=== PATIENT | male | born 1940 | race Caucasian/White ===

== ENCOUNTER 2022-09-26 01:09 | Emergency (ER) | payer MEDICARE, OTHER ==
[2022-09-26] VITALS (13 sets, daily range): BP systolic 123–150; BP diastolic 72–108
[~2022-09-26] VITALS: Ht 162.6 cm; Wt 80.0 kg
[2022-09-26] MEDS ORDERED: PROTONIX40 M2 PO (01:40)
[2022-09-26] MEDS ORDERED: COZAAR50 MG PO (01:41)
[2022-09-26] MEDS ORDERED: SIMVASTATIN20 M1 PO (01:41)
[2022-09-26] MEDS ORDERED: ELAVIL25 M1 PO (01:42)
[2022-09-26] MEDS ORDERED: COREG3.125 MG PO (01:42)
[2022-09-26] MEDS ORDERED: PLAVIX75 MG PO (01:43)
[2022-09-26] MEDS ORDERED: ASPIRINCHW 81MG PO (01:44)
[2022-09-26] MEDS ORDERED: B121000 MC1 PO (01:45)
[2022-09-26] MEDS ORDERED: D31000 UNIT PO (01:45)
[2022-09-26] MEDS ORDERED: OS-CAL 500500 M1 PO (01:46)
[2022-09-26] MEDS ORDERED: VITAMIN C1000 MG PO (01:46)
[2022-09-26 01:54] LABS: BASO% 0.3 % (0-3); EOS% 4.2 % (0-8); HEMATOCRIT 42.1 % (39.0-50.0); HEMOGLOBIN 14.5 g/dl (14.0-18.0); IMMATURE GRANULOCYTES 0.3 % (0.0-5.0); LYMPH% 19.2 % (15-41); MEAN CELL VOLUME 93.8 fL CALC (80.0-100.0); MEAN CORPUSCULAR HGB 32.3 pG CALC (26.0-32.0); MEAN CORPUSCULAR HGB CONC 34.4 g/dL CAL (32.0-36.0); MONO% 9.7 % (2-13); NEUT# 7.32 thou/uL (1.82-7.42); NEUT% 66.3 % (42-76); RED BLOOD COUNT 4.49 mill/uL (4.70-6.10); RED CELL DISTRI WIDTH 13.1 % (11.5-15.5)
[2022-09-26 02:01] LABS: ALBUMIN 4.1 g/dL (3.2-5.0); ALKALINE PHOSPHATASE 80 u/l (38-126); ANION GAP 11 (6-22 (CALC)); BILIRUBIN, TOTAL 0.7 mg/dL (0.2-1.3); BUN 16 mg/dL (8-23); BUN/CREATININE RATIO 16 (12-20 (CALC)); CARBON DIOXIDE 26 mmol/l (22-30); CHLORIDE 99 mmol/l (95-108); GFR FOR AFR.AMER. > 60 ML/MIN (>=60 (CALC)); GFR OTHER RACES > 60 ML/MIN (>=60 (CALC)); POTASSIUM 4.5 mmol/l (3.5-5.1); SGOT/AST 27 u/l (19-48); SODIUM 132 mmol/l (137-146); TOTAL PROTEIN 7.2 g/dL (6.3-8.2)
[2022-09-26] MEDS ORDERED: ZITHROMAX250 MG PO (03:53)
== END 2022-09-26 04:49 | disposition home or self-care (01) ==
LOC: ED 01:09
PROVIDERS: Emergency Medicine
PROC: 0HQFXZZ Repair Right Hand Skin, External Approach (ICD-10-PCS; principal; 2022-09-26)
DX: J20.9 Acute bronchitis, unspecified (principal); S61.411A Laceration without foreign body of right hand, initial encounter; I69.954 Hemiplegia and hemiparesis following unspecified cerebrovascular disease affecting left non-dominant side; I10 Essential (primary) hypertension; J44.9 Chronic obstructive pulmonary disease, unspecified; W01.0XXA Fall on same level from slipping, tripping and stumbling without subsequent striking against object, initial encounter; Z20.822 Contact with and (suspected) exposure to COVID-19

== ENCOUNTER 2022-12-27 09:50 | Observation (INO) | payer MEDICARE, OTHER ==
[2022-12-27] VITALS (21 sets, daily range): BP systolic 111–142; BP diastolic 57–77
[~2022-12-27] VITALS: Ht 162.6 cm; Wt 80.0 kg
[~2022-12-27 09:50] MED LIST: ASPIRINCHW 81MG PO; B121000 MC1 PO; COREG3.125 MG PO; COZAAR50 MG PO; D31000 UNIT PO; ELAVIL25 M1 PO; OS-CAL 500500 M1 PO; PLAVIX75 MG PO; PROTONIX40 M2 PO; SIMVASTATIN20 M1 PO; VITAMIN C1000 MG PO; ZITHROMAX250 MG PO
--- NOTE | 2022-12-27 09:50 | NUR ---
PT WHEELED TO ROOM15. PT IS AN EXTREMELY HARD TRANSFER WITH 2 ASSIST. PT DOES NOT FOLLOW [facility] WELL. NOR DOES HE WALK WELL. PT IS ALERT BUT NOT OX3
[2022-12-27 10:48] LABS: BASO% 0.2 % (0-3); EOS% 1.4 % (0-8); HEMATOCRIT 40.4 % (39.0-50.0); HEMOGLOBIN 13.5 g/dl (14.0-18.0); IMMATURE GRANULOCYTES 0.3 % (0.0-5.0); LYMPH% 9.6 % (15-41); MEAN CELL VOLUME 97.3 fL CALC (80.0-100.0); MEAN CORPUSCULAR HGB 32.5 pG CALC (26.0-32.0); MEAN CORPUSCULAR HGB CONC 33.4 g/dL CAL (32.0-36.0); MONO% 11.5 % (2-13); NEUT# 9.07 thou/uL (1.82-7.42); RED BLOOD COUNT 4.15 mill/uL (4.70-6.10); RED CELL DISTRI WIDTH 13.8 % (11.5-15.5)
[2022-12-27 10:57] LABS: ALBUMIN 3.6 g/dL (3.2-5.0); ALKALINE PHOSPHATASE 63 u/l (38-126); ANION GAP 13 (6-22 (CALC)); BILIRUBIN, TOTAL 1.4 mg/dL (0.2-1.3); BUN 28 mg/dL (8-23); BUN/CREATININE RATIO 26 (12-20 (CALC)); CARBON DIOXIDE 23 mmol/l (22-30); CHLORIDE 106 mmol/l (95-108); CREATININE 1.1 mg/dL (0.7-1.3); GFR FOR AFR.AMER. > 60 ML/MIN (>=60 (CALC)); GFR OTHER RACES > 60 ML/MIN (>=60 (CALC)); POTASSIUM 3.7 mmol/l (3.5-5.1); SGOT/AST 30 u/l (19-48); SODIUM 138 mmol/l (137-146); TOTAL PROTEIN 6.7 g/dL (6.3-8.2)
--- NOTE | 2022-12-27 11:17 | NUR ---
RETURNED FROM XRAY
--- NOTE | 2022-12-27 12:31 | NUR ---
PT HAS SPOUSE AT BEDSIDE, ALL NEEDS HAVE BEEN ADDRESSED.
[2022-12-27 12:52] LABS: URINE BILIRUBIN - DIPSTICK Negative (NEGATIVE); URINE BLOOD DIPSTICK Negative (NEGATIVE); URINE GLUCOSE - DIPSTICK Negative (NEGATIVE); URINE KETONE 15 mg/dL (NEGATIVE); URINE LEUK ESTERASE Negative (NEGATIVE); URINE NITRITE - DIPSTICK Negative (Negative); URINE PROTEIN - DIPSTICK >=300 mg/dL (NEG-TRACE); URINE SPECIFIC GRAVITY 1.025
[2022-12-27 12:54] LABS: URINE COLOR Dark yellow; URINE MUCUS MODERATE hpf (NONE-FEW)
[2022-12-27 13:44] LABS: INTERNATIONAL NORMALIZED RATIO 1.1 RATIO (0.7-1.3); PROTHROMBIN TIME 10.6 SECONDS (9.0-12.5)
[2022-12-27 13:49] LABS: CHOLESTEROL HDL RATIO 2.8 (<4.4 (CALC))
--- NOTE | 2022-12-27 13:50 | NUR ---
PT HAS BEEN ASSISTED TO SITTING UP IN BED, AND HAS BEEN PROVIDED A MEAL.
[2022-12-27 14:20] LABS: TSH, 3RD GENERATION 1.73 uIU/mL (0.47 - 4.68)
--- NOTE | 2022-12-27 15:20 | NUR ---
REPORT GIVEN TO ÁNGEL URIBE. PT HAS ALL BELONGINGS ON PERSON.
--- NOTE | 2022-12-27 15:49 | NUR ---
RECEIVED PT FROM ED ACCOMPANIED BY ÁNGEL BAKER. PT IS AOx0, PLEASANTLY CONFUSED. IV CATHETER IN RAC PATENT. PT IS ON TELEMETRY. PUREWICK PLACED ON PT. ALL SAFETY MEASURES IN PLACE. VSS
--- NOTE | 2022-12-27 20:00 | NUR ---
RECEIVED REPORT FROM NURSE JOJO, PATIENT RESTING IN BED, PATIENT CONFUSED, DOES NOT KNOW HIS NAME, SALINE LOCK NOTED ON RAC G 20 PATENT FLUSHES WELL, HOOKED ON TELEMETRY, HOOKE ON TELEMETRY, PUREWICK IN PLACE, CALL LIGHT IN REACH, BED ALAREM IN PLACE.
--- NOTE | 2022-12-27 22:35 | NUR ---
PATIENT HAS NOT VOIDED, BLADDER SCANNED [id number].WILL CONTINUE TO MONITOR,
[2022-12-28 00:11] VITALS: BP 123/67
--- NOTE | 2022-12-28 04:32 | NUR ---
PATIENT RESTING IN BED, EYES CLOSED,NO DISCOIMFTS AT THIS TIME, BREATHING EVEN UNALBORED.
[2022-12-28 04:58] VITALS: BP 112/63
--- NOTE | 2022-12-28 05:40 | NUR ---
PATIENT VOIDED 150CC, DARK YELLOW URINE, BLADDER SCANNED POST VOID [id number].
--- NOTE | 2022-12-28 06:34 | NUR ---
patient respiration even unlabored resp 15, incorrect input 150.
--- NOTE | 2022-12-28 07:00 | NUR ---
RECEIVED BEDSIDE REPORT FROM ÁNGEL YIN. PT RESTING IN BED WITH EYES CLOSED. ALL SAFETY MEASURES IN PLACE. VSS. NO NEEDS AT THIS TIME.
[2022-12-28 07:24] VITALS: BP 139/72
[2022-12-28 10:24] VITALS: BP 113/72
[2022-12-28 15:10] VITALS: BP 141/74
[2022-12-28 18:00] VITALS: BP 138/76
--- NOTE | 2022-12-28 20:00 | NUR ---
RECEIVED REPORT FROM NURSE TURK, PATIENT RESTING IN BED, TRYING TO GET OUT OF BED, PATIENT CONFUSED BUT CAN FOLLOW COMMANDS, IV ON RAC G 20 SALINE LOCK PATENT FLUSHES WELL, HOOKED ON TELEMETRY , PATIENT CONTINENT AND INCONTINENT AT TE SAME TIME, BREATHING UNLABORED CALL LIGHT IN REACH, BED ALARM IN PLACE.
[2022-12-29] VITALS (7 sets, daily range): BP systolic 120–145; BP diastolic 66–80
--- NOTE | 2022-12-29 | NUR ---
PATIENT RESTING IN BED, EYES CLOSED, BREATHING EVEN UNALBORED REMAINS ON TELEMETRY SR 88,CALL LIGHT IN REACH, BED ALARM INPLACE.
--- NOTE | 2022-12-29 05:00 | NUR ---
PATIENT IN BED, NOT IN DISTRESS, BREATHING EVEN UNLABORED, PATIENT STILL CONFUSED BUT CAN FOLLOW COMMANDS, BED ALARM IN PLACE.
--- NOTE | 2022-12-29 07:36 | NUR ---
BEDSIDE SHIFT REPORT, PT IN BED WITH EYES CLOSED, RESPONDS TO TACTILE STIMULI, STATES FIRST NAME ONLY, DISORIENTED TO PLACE, DATE AND TIME, DENIES PAIN, STATES NOT READY FOR BREAKFAST YET, TELE MONITOR IN PLACE, BED ALARM ACTIVATED AND LOCKED IN LOWEST POSITION.
[2022-12-29 08:20] LABS: BASO% 0.3 % (0-3); EOS% 5.1 % (0-8); HEMOGLOBIN 14.9 g/dl (14.0-18.0); IMMATURE GRANULOCYTES 0.3 % (0.0-5.0); LYMPH% 17.4 % (15-41); MEAN CELL VOLUME 94.1 fL CALC (80.0-100.0); MEAN CORPUSCULAR HGB 32.6 pG CALC (26.0-32.0); MEAN CORPUSCULAR HGB CONC 34.7 g/dL CAL (32.0-36.0); MONO% 12.1 % (2-13); NEUT# 6.53 thou/uL (1.82-7.42); NEUT% 64.8 % (42-76); RED BLOOD COUNT 4.57 mill/uL (4.70-6.10); RED CELL DISTRI WIDTH 13.1 % (11.5-15.5)
[2022-12-29 09:01] LABS: ALKALINE PHOSPHATASE 80 u/l (38-126); ANION GAP 15 (6-22 (CALC)); BILIRUBIN, TOTAL 1.9 mg/dL (0.2-1.3); BUN 23 mg/dL (8-23); BUN/CREATININE RATIO 25 (12-20 (CALC)); CARBON DIOXIDE 24 mmol/l (22-30); CHLORIDE 101 mmol/l (95-108); CREATININE 0.9 mg/dL (0.7-1.3); GFR FOR AFR.AMER. > 60 ML/MIN (>=60 (CALC)); GFR OTHER RACES > 60 ML/MIN (>=60 (CALC)); POTASSIUM 3.2 mmol/l (3.5-5.1); SGOT/AST 35 u/l (19-48); SODIUM 137 mmol/l (137-146); TOTAL PROTEIN 7.9 g/dL (6.3-8.2)
--- NOTE | 2022-12-29 12:00 | NUR ---
PT WENT DOWN FOR MRI, TECH REPORTED PROCEDURE WAS NOT COMPLETE DUE TO PT MOVING IN MACHINE, HOWEVER SHE WAS ABLE TO SEND WHAT SHE GOT TO THE RADIOLOGIST FOR INTERPRETATION.
--- NOTE | 2022-12-29 16:00 | NUR ---
PT REMAINS LETHARGIC AND SLEEPS A LOT, WILL AWAKEN WITH STRONG STIMULATION. INQUIRED ABOUT MRI RESULT AND WAS INFORMED OF REPORT FROM [employer] WORKER, HE ALSO ORDERED ANTI-ANXIETY MED FOR PRE-MED IF TEST HAS TO BE REPEATED BUT TEST RESULTS ARE NOT YET PUBLISHED AND COULD NOT REACH TECH TO CONTACT RADIOLOGIST TO SPEED UP REPORT.
--- NOTE | 2022-12-29 22:20 | NUR ---
PT IN BED RESTING WITH EYES CLOSED BREATHING IS EVEN AND UNLABORED. NO S/S OF DISTRESS NOTED. PT AWAKWN TO PERFORM SHIFT ASSESSMENT AND MEDS. IV TO RAC 2OG PATENT AND FLUSHES WELL, IV DRESSING CHANGE. PT DENIES PAIN OR DISCOMFRT. CALL LIGHT IN REACH AND BED IN LOWEST POSITION.
[2022-12-30 00:26] VITALS: BP 128/69
--- NOTE | 2022-12-30 00:45 | NUR ---
PT IN BED RESTING WITH EYES CLOSED BREATHING EVEN AND UNLABORED. NO S/S OF DISTRESS NOTED CALL LIGHT IN REACH AND BED IN LOWEST POSITION. BED ALARM ON.
[2022-12-30 04:33] VITALS: BP 148/76
--- NOTE | 2022-12-30 04:35 | NUR ---
pt in bed resting with eyes closed breathing even adn unlabored. no s/s of distress noted. call light in reach and bed in lowest position. bed alarm on.
--- NOTE | 2022-12-30 07:18 | NUR ---
BEDSIDE SHIFT REPORT, PT SLEEPING IN SUPINE POSITION, BREATHING EVEN AND NON-LABORED, NO SIGN DISCOMFORT, TELE MONITOR IN PLACE, CALL PUGA IN REACH AND BED LOCKED IN LOWEST POSITION.
[2022-12-30 08:02] VITALS: BP 136/77
[2022-12-30 08:59] VITALS: BP 135/77
[2022-12-30 12:21] VITALS: BP 129/76
--- NOTE | 2022-12-30 13:42 | NUR ---
Discharge instructions given. Patient verbalizes understanding of same. Discharged in stable condition via Wheelchair to Home with spouse. All belongings sent with pt.
== END 2022-12-30 14:38 | disposition home health service (06) ==
LOC: ED 09:50 → ED-I 13:08 → ED 13:37 → MS2 13:38
PROVIDERS: Family Medicine; ADMIT Student in an Organized Health Care Education/Training Program; ATTEND Student in an Organized Health Care Education/Training Program
DX: R41.82 Altered mental status, unspecified (principal); E86.0 Dehydration; I10 Essential (primary) hypertension; I69.354 Hemiplegia and hemiparesis following cerebral infarction affecting left non-dominant side; J44.9 Chronic obstructive pulmonary disease, unspecified; Z87.74 Personal history of (corrected) congenital malformations of heart and circulatory system; Z20.822 Contact with and (suspected) exposure to COVID-19
CPT/HCPCS: J1650